=== PATIENT | male | born 2000 | race Caucasian/White ===

== ENCOUNTER 2023-08-12 23:22 | Emergency (ER) | payer SELFPAY ==
[~2023-08-12] VITALS: Ht 182.9 cm; Wt 146.5 kg
[2023-08-12 23:37] VITALS: BP_SYST 142; PULSE 107; RESP 16; TEMP 98; O2SAT 98
== END 2023-08-12 23:49 ==
LOC: SED 23:22
DX: Z02.89 Encounter for other administrative examinations (principal); E11.9 Type 2 diabetes mellitus without complications
CPT/HCPCS: 74018; 82948; 99283